=== PATIENT | male | born 1940 | race Caucasian/White ===

== ENCOUNTER → 2016-12-15 | Outpatient (CLI) | payer MEDICARE, OTHER ==
[~2016-12-15] MED LIST: ACCUPRIL40 MG PO; AMLODIPINE BESYL5 MG PO; APRESOLINE25 MG PO; COREG12.5 MG PO; CRESTOR10 MG PO; GLUCOPHAGE500 MG PO; IMDUR30 MG PO; KEFLEX500 MG PO; LASIX40 MG PO; LEVOTHROID (SY50 MCG PO; NEXIUM PO; NEXIUM40 MG; NORVASC10 MG PO; PRAVACHOL40 MG; PRILOSEC20 M1 PO; TAMBOCOR100 MG PO; TOPROL XL100 MG PO; XARELTO20 MG PO
== END | disposition disaster alternative care site (69) ==
LOC: GRAD 13:12
DX: R10.9 Unspecified abdominal pain (principal); I77.72 Dissection of iliac artery; K42.9 Umbilical hernia without obstruction or gangrene; Z90.79 Acquired absence of other genital organ(s)

== ENCOUNTER 2017-03-30 16:49 | Emergency (ER) | payer MEDICARE, OTHER ==
--- NOTE | ~2017-03-30 | ER ---
PATIENT'S NAME: ESPERANZA CLAUDIO [facility] AGE: 76 Y [address] ROOM: [place] [id number] LOCATION: [facility] ADMIT DATE: 03/30/2017 ER/Outpatient Report DISCHARGE DATE: 03/30/2017 FAMILY PHYSICIAN: Darien Martins MD ATTENDING PHYSICIAN: Alex Larose TIME OF ARRIVAL: 1716 hours. TIME OF EXAM: 1716 hours. CHIEF COMPLAINT: Dizziness. HISTORY OF PRESENT ILLNESS: The patient states he woke up around 6 o'clock this morning with dizziness. He said he felt a pop in his head and then began having extreme dizziness and nausea. He states he vomited several times this morning. Did try taking some meclizine that he has on hand, but was unable to keep it down this morning. He denies having fever or chills. He has not had any chest pain or chest discomfort. Denies having any change in bowel or bladder pattern. ALLERGIES: MORPHINE. CURRENT MEDICATIONS: On his chart and reviewed by me. PAST MEDICAL HISTORY: Ygi-gcavnzo-autyybeen diabetes, hypertension, BPH, atrial fibrillation. He is on levothyroxine for hypothyroidism. PAST SURGICAL HISTORY: Prostate, stent. DICTATION ENDS HERE. NANCY OLIVEIRA APRN FOR [facility] [place]/sanket PATIENT'S NAME: ESPERANZA CLAUDIO [facility] AGE: 76 Y [address] ROOM: [place] [id number] LOCATION: [facility] ADMIT DATE: 03/30/2017 ER/Outpatient Report DISCHARGE DATE: 03/30/2017 FAMILY PHYSICIAN: Darien Martins MD ATTENDING PHYSICIAN: Alex Larose /[id number] d: 03/31/17 0000 t: 04/08/17 1056, OUTPATIENT REPORT
--- NOTE | ~2017-03-30 | ER ---
PATIENT'S NAME: ESPERANZA CLAUDIO [facility] AGE: 76 Y [address] ROOM: [place] [address] LOCATION: [facility] ADMIT DATE: 03/30/2017 ER/Outpatient Report DISCHARGE DATE: 03/30/2017 FAMILY PHYSICIAN: Darien Martins MD ATTENDING PHYSICIAN: Alex Larose ADDENDUM: PAST MEDICAL HISTORY: Non-insulin dependent diabetes, hypertension, BPH, atrial fib, hypothyroidism. PAST SURGERIES: Prostate surgery, stent into his left leg, left leg vein cath, cellulitis of his left leg. SOCIAL HISTORY: He denies use of tobacco, drugs, or alcohol. REVIEW OF SYSTEMS: All negative other than those mentioned in the HPI. PHYSICAL EXAMINATION: VITAL SIGNS: He weighs 93.4 kg, blood pressure is 186/87, pulse is 76, respirations 18, temperature of 96.8 tympanic, O2 saturation is 99% on room air. GENERAL: He is awake, alert, and oriented x4. SKIN: Bearden, warm, and dry. RESPIRATIONS: Even and nonlabored. HEENT: Pupils are equal and reactive to light. Extraocular movement is intact. He does have positive 2-beat nystagmus. Extraocular movement activity did make him feel dizzy and lightheaded. TMs are pearly arciniega. Nasal is boggy. Oropharynx is clear. NECK: Supple. No lymphadenopathy. LUNGS: Lung sounds are clear throughout. HEART: Regular rate and rhythm. ABDOMEN: Soft, nondistended. Bowel sounds are present. EXTREMITIES: He has nonpitting edema of his lower extremities. He is able to do rapid movement of his fingers. Able to do nose to finger rapidly without any difficulty. Able to move his lower extremities without any difficulty. Moves all extremities equally. LABORATORY DATA AND X-RAYS: EKG is completed. It shows a sinus rhythm. CBC is within normal limits. Chem panel: Sodium is 139, potassium is 3.9, chloride 106, glucose is 184, BUN is 22, creatinine of 1.3. Cardiac enzymes: CPK is 185, CK-MB is 1.2, and PATIENT'S NAME: ESPERANZA CLAUDIO [facility] AGE: 76 Y [address] ROOM: [place] [address] LOCATION: [facility] ADMIT DATE: 03/30/2017 ER/Outpatient Report DISCHARGE DATE: 03/30/2017 FAMILY PHYSICIAN: Darien Martins MD ATTENDING PHYSICIAN: Alex Larose troponin is negative. Lactate is 2. Procalcitonin is normal. EMERGENCY DEPARTMENT COURSE: He was given meclizine 25 mg p.o. Did do an MRI of the brain. Radiologist reports no acute abnormalities. The patient reports the meclizine did improve his vertigo. His extraocular eye movement has improved. No nystagmus is noted. IMPRESSION: Vertigo. PLAN: Home, rest, fluids. Meclizine as prescribed. If he continues to have problems, he needs to follow up with primary provider in the next 2-3 days. He verbalized understanding. NANCY OLIVEIRA APRN FOR [facility] [place]/modl /[id number] d: 03/30/17 2359 t: 04/08/17 1059, OUTPATIENT REPORT
[2017-03-30 17:51] LABS: BASOPHIL % 0.4 %; EOSINOPHIL # 0.1 K/uL (0.0-0.5); EOSINOPHIL % 0.7 %; HEMATOCRIT 42.4 % (37.0-53.0); HEMOGLOBIN 14.8 g/dL (11.0-16.0); IMMATURE GRANULOCYTE % 0.1 %; LYMPHOCYTE # 1.1 K/uL (0.8-4.0); LYMPHOCYTE % 13.5 %; MCH 30.4 pg (27.0-34.0); MCHC 34.9 gm/dL (32.0-36.5); MCV 87.1 fl (83.0-98.0); MONOCYTE # 0.7 K/uL (0.0-1.0); MPV 10.5 fl (9.4-12.4); NEUTROPHIL # (ANC) 6.3 K/uL (1.4-9.0); NEUTROPHIL % 77.3 %; NRBC % 0 /100WBC (0-0.00); PLATELET COUNT 259 K/uL (150-450); RBC 4.87 M/uL (3.50-5.50); RDW-CV 13.4 % (11.9-14.6); WBC 8.1 K/uL (4.0-11.0)
[2017-03-30 18:00] LABS: INR - (THERAPEUTIC) 1.18 (0.92-1.07); PROTIME 12.4 SECONDS (9.8-11.4); PTT 36 SECONDS (25-32)
[2017-03-30 18:13] LABS: ALBUMIN 4.2 gm/dL (3.5-5.0); ALK PHOS 91 IU/L (33-138); ALT 18 IU/L (12-78); ANION GAP 10.9 (10.0-19.0); AST 18 IU/L (10-40); BLOOD UREA NITROGEN 22 mg/dL (6-24); CALCIUM 8.8 mg/dL (8.5-10.5); CHLORIDE 106 mMol/L (96-110); CO2 26 mMol/L (22-32); CPK 185 IU/L (35-332); CREATININE 1.3 mg/dL (0.6-1.3); POTASSIUM 3.9 mMol/L (3.7-5.1); SODIUM 139 mMol/L (135-145); TOTAL BILIRUBIN 0.5 mg/dL (0.0-1.5); TOTAL PROTEIN 8.2 g/dL (6.0-8.4)
== END 2017-03-30 19:36 | disposition disaster alternative care site (69) ==
LOC: GMED 16:49
PROVIDERS: Nurse Practitioner Family
DX: R42 Dizziness and giddiness (principal); E11.9 Type 2 diabetes mellitus without complications; I10 Essential (primary) hypertension; E03.9 Hypothyroidism, unspecified; Z98.890 Other specified postprocedural states; Z88.5 Allergy status to narcotic agent; Z79.899 Other long term (current) drug therapy